=== PATIENT | male | born 1990 | race Caucasian/White ===

== ENCOUNTER 2017-08-01 11:46 | Emergency (ER) | payer BC, OTHER ==
[~2017-08-01] VITALS: Ht 175.3 cm; Wt 74.5 kg
[~2017-08-01 11:46] MED LIST: SERT50 PO; VIST25CA PO
[2017-08-01 11:49] VITALS: BP 126/68; PULSE 58; RESP 16; TEMP 97.5; O2SAT 99
[2017-08-01] MEDS ORDERED: KETOROLAC TROMETHAMINE 30 MG/ML (IVP) VIAL IVP ONE (12:15)
--- NOTE | 2017-08-01 12:15 | PD ---
HPI Chief Complaint: GI Complaint Time Seen by Provider: 11:53 Travel History International Travel<30 days: No Contact w/Intl Traveler<30days: No Traveled to known affect area: No History of Present Illness HPI 27yo M with PMH of periumbilical and lower abdominal pain that started around 3am. Said he felt constipated and was straining to go to bathroom. Then started having episodes of blood from rectum. Denies any fever, chest pain, sob , n/v, dysuria, hematuria, testicular pain, penile rash or discharge, focal weakness or numbness. Pt's father was recently diagnosed with stage 4 colon cancer in his 50s. PFSH Past Medical History Medical History: Denies Significant Hx Tetanus Vaccination: > 5 Years Influenza Vaccination: Yes Past Surgical History Surgical History: No Previous Surgery Social History Alcohol Use: Yes (SOCIALLY) Tobacco Use: Yes Substance Use: No Allergies-Medications (Allergen,Severity, Reaction): Coded Allergies: No Known Allergies (Unverified Adverse Reaction, Unknown, 08/01/17) Reported Meds & Prescriptions Reported Meds & Active Scripts Active No Active Prescriptions or Reported Medications Review of Systems Except as stated in HPI: all other systems reviewed are Neg Physical Exam Narrative GENERAL: 27yo M in mild distress. SKIN: Focused skin assessment warm/dry. HEAD: Atraumatic. Normocephalic. CARDIOVASCULAR: Regular rate and rhythm. No murmur appreciated. RESPIRATORY: No accessory muscle use. Clear to auscultation. Breath sounds equal bilaterally. GASTROINTESTINAL: Abdomen soft, +Suprapubic ttp > left and right lower abdomen. No rebound tenderness or guarding. : No testicular ttp. No inguinal hernia palpated. Rectal: No external hemorrhoids. Small amount of yellow stool but hemaprompt positive. MUSCULOSKELETAL: No obvious deformities. No clubbing. No cyanosis. No edema. NEUROLOGICAL: Awake and alert. No obvious cranial nerve deficits. Motor grossly within normal limits. Normal speech. PSYCHIATRIC: Appropriate mood and affect; insight and judgment normal. Data Data Last Documented VS Vital Signs Date Time Temp Pulse Resp B/P (MAP) Pulse Ox O2 Delivery O2 Flow Rate FiO2 08/01/17 11:49 97.5 58 16 126/68 (87) 99 Orders Orders Complete Blood Count With Diff (08/01/17 12:11) Comprehensive Metabolic Panel (08/01/17 12:11) Lipase (08/01/17 12:11) Urinalysis - C+S If Indicated (08/01/17 12:11) Ct Abd/Pel W Iv Contrast(Rout) (08/01/17 12:11) Ketorolac Inj (Toradol Inj) (08/01/17 12:15) Type And Screen (08/01/17 12:15) Iohexol 350 Inj (Omnipaque 350 Inj) (08/01/17 12:57) Sodium Chlor 0.9% 1000 Ml Inj (Ns 1000 M (08/01/17 13:15) Labs Laboratory Tests Test 08/01/17 12:20 White Blood Count 16.7 TH/MM3 Red Blood Count 5.50 MIL/MM3 Hemoglobin 16.4 GM/DL Hematocrit 49.4 % Mean Corpuscular Volume 89.7 FL Mean Corpuscular Hemoglobin 29.7 PG Mean Corpuscular Hemoglobin Concent 33.1 % Red Cell Distribution Width 12.1 % Platelet Count 140 TH/MM3 Mean Platelet Volume 8.5 FL Neutrophils (%) (Auto) 92.8 % Lymphocytes (%) (Auto) 4.9 % Monocytes (%) (Auto) 1.5 % Eosinophils (%) (Auto) 0.1 % Basophils (%) (Auto) 0.7 % Neutrophils # (Auto) 15.5 TH/MM3 Lymphocytes # (Auto) 0.8 TH/MM3 Monocytes # (Auto) 0.3 TH/MM3 Eosinophils # (Auto) 0.0 TH/MM3 Basophils # (Auto) 0.1 TH/MM3 CBC Comment AUTO DIFF Urine Collection Type VOIDED Urine Color YELLOW Urine Turbidity CLOUDY Urine pH 5.5 Urine Specific [place] GREATER/EQUAL 1.030 Urine Protein NEG mg/dL Urine Glucose (UA) NEG mg/dL Urine Ketones 80 OR GREATER mg/dL Urine Occult Blood NEG Urine Nitrite NEG Urine Bilirubin NEG Urine Urobilinogen 0.2 MG/DL Urine Leukocyte Esterase NEG Urine Amorphous Sediment MOD Urine Hyaline Casts FEW /lpf Microscopic Urinalysis Comment CULT NOT INDICATED Blood Urea Nitrogen 12 MG/DL Creatinine 0.99 MG/DL Random Glucose 138 MG/DL Total Protein 7.0 GM/DL Albumin 3.7 GM/DL Calcium Level 9.0 MG/DL Aspartate Amino Transf (AST/SGOT) 18 U/L Total Bilirubin 0.6 MG/DL Sodium Level 141 MEQ/L Potassium Level 4.4 MEQ/L Chloride Level 107 MEQ/L Carbon Dioxide Level 27.5 MEQ/L Anion Gap 7 MEQ/L Estimat Glomerular Filtration Rate 89 ML/MIN Lipase 99 U/L [facility] Medical Decision Making Medical Screen Exam Complete: Yes Emergency Medical Condition: Yes Differential Diagnosis Inflammatory bowel disease vs. cystitis vs. colitis vs. malignancy vs. appendicitis Narrative Course 27yo M with c/o constipation and then blood per rectum today. Pt also with some generalized lower abdominal pain. Labs reviewed, mild leukocytosis at 16.7. H/H normal at 16.4/49.4. Mild thrombocytopenia at 140,000. Lipase normal. CMP unremarkable. UA showed positive ketones. Few hyaline casts. Pt likely dehydrated, given NS IVF. No leukocyte. Culture not indicated. Pt has no nausea or vomiting and able to orally hydrate as well. CT a/p showed no acute process. Pt given toradol and reevaluated at bedside. Abdominal pain has resolved. Abdomen is now soft, no tender to palpation in all quadrants. No rebound tenderness or guarding. Pt is hemodynamically stable. Pt instructed to follow up with GI for further work up. Return precautions given. Hema[employer]pt Point of Care Internal Pos. & Neg. Controls: Passed Fecal Specimen Occult Blood: Positive Diagnosis Primary Impression: Rectal bleeding Referrals: Saray Parnell MD call for appointment family history of colon CA, rectal bleeding today Patient Instructions: General Instructions Departure Forms: Tests/Procedures Additional Instructions: Please follow up with industrial machine operator as soon as possible. Return to the ED if symptoms worsen. Scripts No Active Prescriptions or Reported Meds Katy Turcios DO Aug 01, 2017 12:15
[2017-08-01 12:32] LABS: AUTOMATED NEUTROPHIL # 15.5 TH/MM3 (1.8-7.7); BASOPHIL # 0.1 TH/MM3 (0-0.2); BASOPHIL % 0.7 % (0.0-2.0); EOSINOPHIL % 0.1 % (0.0-4.0); HEMATOCRIT 49.4 % (39.0-51.0); HEMOGLOBIN 16.4 GM/DL (13.0-17.0); LYMPH % 4.9 % (9.0-44.0); LYMPHOCYTE # 0.8 TH/MM3 (1.0-4.8); MEAN CELL VOLUME 89.7 FL (80.0-100.0); MEAN CORPUSCULAR HEMOGLOBIN 29.7 PG (27.0-34.0); MEAN CORPUSCULAR HGB CONC 33.1 % (32.0-36.0); MEAN PLATELET VOLUME 8.5 FL (7.0-11.0); MONO % 1.5 % (0.0-8.0); MONOCYTE # 0.3 TH/MM3 (0-0.9); NEUT % 92.8 % (16.0-70.0); PLATELET COUNT 140 TH/MM3 (150-450); RED CELL DISTRIBUTION WIDTH 12.1 % (11.6-17.2); WHITE BLOOD COUNT 16.7 TH/MM3 (4.0-11.0)
[2017-08-01 12:47] LABS: BLOOD, URINE NEG (NEG); GLUCOSE,URINE NEG (NEG); KETONE, URINE 80 OR GREATER mg/dL (NEG); NITRITE,URINE NEG (NEG); PH, URINE 5.5 (5.0-8.5); URINE COLOR YELLOW (YELLW/STRAW); URINE LEUKOCYTE ESTERASE NEG (NEG)
[2017-08-01 12:56] LABS: AMORPHOUS SEDIMENT, URINE MOD; BILIRUBIN, URINE NEG (NEG); HYALINE CAST, URINE FEW /lpf (RARE)
[2017-08-01] MEDS ORDERED: IOHEXOL 350 MG/ML 10 ML VIAL (for RAD DIAG) IVCONTRAST ONE (12:57)
--- NOTE | 2017-08-01 13:07 | RADRPT ---
EXAM DATE/TIME: 08/01/2017 12:51 [facility] COMPARISON: No previous studies available for comparison. INDICATIONS : Constipation and blood in stool. IV CONTRAST: 95 cc Omnipaque 350 (iohexol) IV ORAL CONTRAST: No oral contrast ingested. RADIATION DOSE: 7.60 CTDIvol (mGy) MEDICAL HISTORY : None SURGICAL HISTORY : None. ENCOUNTER: Initial ACUITY: 1 day PAIN SCALE: 0/10 LOCATION: pelvis TECHNIQUE: Volumetric scanning of the abdomen and pelvis was performed. Using automated exposure control and ad justment of the mA and/or kV according to patient size, radiation dose was kept as low as reasonably achievable to obtain optimal diagnostic quality images. DICOM format image data is available electro nically for review and comparison. FINDINGS: LOWER LUNGS: The visualized lower lungs are clear. LIVER: Homogeneous density without lesion. There is no dilation of the biliary tree. No calcified gallston es. SPLEEN: Normal size without lesion. PANCREAS: Within normal limits. KIDNEYS: Normal in size and shape. There is no mass, stone or hydronephrosis. ADRENAL GLANDS: Within normal limits. VASCULAR: There is no aortic aneurysm. BOWEL/MESENTERY: The stomach, small bowel, and colon demonstrate no acute abnormality. There is no free intraperitone al air or fluid. ABDOMINAL WALL: Within normal limits. RETROPERITONEUM: There is no lymphadenopathy. BLADDER: No wall thickening or mass. REPRODUCTIVE: Within normal limits. INGUINAL: There is no lymphadenopathy or hernia. MUSCULOSKELETAL: Within normal limits for patient age. CONCLUSION: Negative for acute process. I do not see obvious bladder the constipation or blood in the stool. Fu rther followup is suggested.. Marco Peña MD FACR on August 01, 2017 at 13:04 Board Certified Radiologist. This report was verified electronically.
[2017-08-01 13:09] LABS: CHLORIDE 107 MEQ/L (98-107); SODIUM (NA) 141 MEQ/L (136-145)
[2017-08-01] MEDS ORDERED: SODIUM CHLOR 0.9% 1000 ML INJ 1,000 ML IV ONE (13:15)
[2017-08-01 13:17] LABS: ALBUMIN 3.7 GM/DL (3.4-5.0); BICARBONATE 27.5 MEQ/L (21.0-32.0); BLOOD UREA NITROGEN 12 MG/DL (7-18); GLUCOSE,RANDOM 138 MG/DL (74-106)
[2017-08-01 13:19] LABS: AST (GOT) 18 U/L (15-37)
[2017-08-01 13:20] LABS: CREATININE 0.99 MG/DL (0.60-1.30); GLOMERULAR FILTRATION RATE 89 ML/MIN (>89)
[2017-08-01 13:21] LABS: TOTAL BILIRUBIN ADULT 0.6 MG/DL (0.2-1.0)
[2017-08-01 13:22] LABS: ALKALINE PHOSPHATASE 66 U/L (45-117); ALT (GPT) 30 U/L (12-78)
[2017-08-01 13:23] VITALS: BP 135/71; PULSE 62; RESP 16; O2SAT 99
== END 2017-08-01 14:00 | disposition home or self-care (01) ==
LOC: PHED 11:46
DX: K92.1 Melena (principal); Z72.0 Tobacco use
CPT/HCPCS: 74177; 80053; 81001; 83690; 85025; 86850; 86900; 86901; 96374; 99284; J1885; J7030; Q9967